=== PATIENT | male | born 1990 | race Caucasian/White ===

== ENCOUNTER 2018-02-07 10:57 | Emergency (ER) | payer BC, SELFPAY ==
[2018-02-07] MEDS ORDERED: NA CHLORIDE 0.9% 1,000 ML ONE (11:16)
[2018-02-07 11:32] LABS: Absolute Lymphocytes (CBC) 2.1 K/uL (0.7-4.9); Absolute Monocytes 0.4 K/uL (0.1-1.3); Absolute Neutrophil 4.2 K/uL (1.8-8.0); Eosinophils % 1.8 % (0-4.4); Hematocrit 47.7 % (39.6-49.0); Lymphocytes % 30.2 % (15.3-44.8); MCV 85.6 fL (80-100); Monocytes % 5.6 % (3.3-12.3); RBC Red Blood Cell Count 5.57 M/uL (4.33-5.43)
[2018-02-07 11:51] LABS: Albumin 4.4 g/dL (3.2-5.5); Bilirubin Total 0.7 mg/dL (0.3-1.2); Protein, Total 7.5 g/dL (6.0-8.3)
[2018-02-07 11:58] LABS: Potassium 4.4 mEq/L (3.6-5.0)
--- NOTE | 2018-02-07 12:58 | EDPHYS ---
Physician Documentation [facility] Name: Jared Bernardo Age: 27 yrs Sex: Male : 1990 Arrival Date: 02/07/2018 Time: 10:57 Bed 4 Private MD: ED Physician Jayant Son HPI: 02/07 11:13 This 27 yrs old Male presents to ER via EMS with complaints of weakness . jr8 11:13 Patient stated that while at work started to feel legs become weak and shaky. Stated jr8 that his boss wanted him to be checked out. EMS arrived on site and checked blood sugar since he had history of insulin resistence in past. Saw that BGL was in 70s. Gave some oral glucose. Patient currently on no diabetic medications. Vitamins only. Stated that he has been on and alkaline diet and has lost about 60 pounds thus far. Feeling better now but has cramping and pain in bilateral thighs. Denies any other problems . Severity of symptoms: At their worst the symptoms were moderate in the emergency department the symptoms have improved moderately. The patient has not experienced similar symptoms in the past. The patient has not recently seen a physician. Historical: - Allergies: 11:05 NKA; iw - Home Meds: 11:05 None [Active]; iw - PMHx: 11:05 None; iw - PSHx: 11:05 None; iw - Immunization history:: Adult Immunizations. - Social history:: Smoking status: . ROS: 11:13 Eyes: Negative for injury, pain, redness, and discharge, ENT: Negative for injury, jr8 pain, and discharge, Neck: Negative for injury, pain, and swelling, Cardiovascular: Negative for chest pain, palpitations, and edema, Respiratory: Negative for shortness of breath, cough, wheezing, and pleuritic chest pain, Abdomen/GI: Negative for abdominal pain, nausea, vomiting, diarrhea, and constipation, Back: Negative for injury and pain, MS/Extremity: Negative for injury and deformity, Skin: Negative for injury, rash, and discoloration. 11:13 Neuro: Positive for weakness, of the right leg and left leg, Negative for altered mental status, dizziness, gait disturbance, headache, hearing loss, loss of consciousness, numbness, seizure activity, speech changes, syncope, near syncope, tingling, tinnitus, tremor, visual changes. Exam: 11:13 Head/Face: Normocephalic, atraumatic. Eyes: Pupils equal round and reactive to light, jr8 extra-ocular motions intact. Lids and lashes normal. Conjunctiva and sclera are non-icteric and not injected. Cornea within normal limits. Periorbital areas with no swelling, redness, or edema. ENT: Nares patent. No nasal discharge, no septal abnormalities noted. Tympanic membranes are normal and external auditory canals are clear. Oropharynx with no redness, swelling, or masses, exudates, or evidence of obstruction, uvula midline. Mucous membranes moist. Neck: Trachea midline, no thyromegaly or masses palpated, and no cervical lymphadenopathy. Supple, full range of motion without nuchal rigidity, or vertebral point tenderness. No Meningismus. Cardiovascular: Regular rate and rhythm with a normal S1 and S2. No gallops, murmurs, or rubs. Normal PMI, no JVD. No pulse deficits. Respiratory: Lungs have equal breath sounds bilaterally, clear to auscultation and percussion. No rales, rhonchi or wheezes noted. No increased work of breathing, no retractions or nasal flaring. Abdomen/GI: Soft, non-tender, with normal bowel sounds. No distension or tympany. No guarding or rebound. No evidence of tenderness throughout. Back: No spinal tenderness. No costovertebral tenderness. Full range of motion. Skin: Warm, dry with normal turgor. Normal color with no rashes, no lesions, and no evidence of cellulitis. MS/ Extremity: Pulses equal, no cyanosis. Neurovascular intact. Full, normal range of motion. Neuro: Awake and alert, GCS 15, oriented to person, place, time, and situation. Cranial nerves II-XII grossly intact. Motor strength 5/5 in all extremities. Sensory grossly intact. Cerebellar exam normal. Normal gait. Vital Signs: 11:09 BP 149 / 78; Pulse 100; Resp 20; Temp 98.2; Pulse Ox 96% on R/A; Pain 0/10; iw 11:34 BP 139 / 92; Pulse 98; Resp 20; Pulse Ox 97% ; sv 12:40 BP 146 / 84; Pulse 96; Resp 17; Pulse Ox 98% ; sv MDM: 10:58 Patient medically screened. jr8 12:56 Data reviewed: vital signs, nurses notes, lab test result(s), and as a result, I will jr8 discharge patient. Data interpreted: Pulse oximetry: on room air is 98 %. Interpretation: normal. Counseling: I had a detailed discussion with the patient and/or guardian regarding: the historical points, exam findings, and any diagnostic results supporting the discharge/admit diagnosis, lab results, the need for outpatient follow up, a family practitioner, to return to the emergency department if symptoms worsen or persist or if there are any questions or concerns that arise at home. Response to treatment: the patient's symptoms have markedly improved after treatment, patient is well hydrated. ED course: Patient feeling much better. Wants to be released to go home . 02/07 11:05 Order name: CBC with Diff; Complete Time: 11:42 [facility] 02/07 11:05 Order name: CMP; Complete Time: 12:02 [facility] 02/07 11:05 Order name: CPK; Complete Time: 12:02 [facility] 02/07 11:29 Order name: Glucose, Ancillary Testing; Complete Time: 11:31 [facility] 02/07 11:30 Order name: Glucose, Ancillary Testing [facility] 02/07 11:05 Order name: IV; Complete Time: 11:18 [facility] 02/07 11:05 Order name: Urine Dipstick-Ancillary (obtain specimen); Complete Time: 11:07 [facility] 02/07 11:05 Order name: Glucose Level; Complete Time: 11:05 [facility] 02/07 11:05 Order name: Diet Regular; Complete Time: 11:06 [facility] Administered Medications: 11:27 Drug: NS 0.9% 1000 ml Route: IV; Rate: 1000 ml; Site: right antecubital; Point of Care Testing: Blood Glucose: 12:01 Blood Glucose: 87 mg/dL; mh5 Ranges: Critical Glucose Levels:Adult <50 mg/dl or >400 mg/dl <40 mg/dl or >180 mg/dl Disposition: 17:57 Co-signature as Attending Physician, Jayant Son MD. rn Disposition: 02/07/18 12:57 Discharged to Home. Impression: Dehydration. - Condition is Stable. - Discharge Instructions: Dehydration, Adult, Blood Glucose Monitoring, Adult. - Work release form, Medication Reconciliation Form, Thank You Letter, Antibiotic Education, Prescription Opioid Use form. - Follow up: Private Physician; When: 2 - 3 days; Reason: Recheck today's complaints, Continuance of care, Re-evaluation by your physician. - Problem is new. - Symptoms have improved. Signatures: Dispatcher [employer] EDlOeg Brown RN Daniela Smyth RN RN iw Nieto, Roman, MD MD rn Roszak, Josh, PA PA jr8
--- NOTE | 2018-02-07 12:58 | ER ---
Nurse's Notes [facility] Name: Jared Bernardo Age: 27 yrs Sex: Male : 1990 Arrival Date: 02/07/2018 Time: 10:57 Bed 4 Private MD: Diagnosis: Dehydration Presentation: 02/07 10:59 Presenting complaint: EMS states: pt got a little shaky/jittery while at walking down iw stairs, legs gave out, has recently changed his diet, did not eat breakfast this morning, FS=75 EMS gave oral glucose, up to 82. Transition of care: patient was not received from another setting of care. Onset of symptoms was February 07, 2018. Care prior to arrival: Medication(s) given: oral glucose 37.5 gm. 10:59 Method Of Arrival: EMS: [facility] iw 10:59 Acuity: AURELIO 3 iw Historical: - Allergies: 11:05 NKA; iw - Home Meds: 11:05 None [Active]; iw - PMHx: 11:05 None; iw - PSHx: 11:05 None; iw - Immunization history:: Adult Immunizations. - Social history:: Smoking status: . Screenin:10 Abuse screen: Denies threats or abuse. Denies injuries from another. Nutritional iw screening: No deficits noted. Tuberculosis screening: No symptoms or risk factors identified. Fall Risk None identified. Assessment: 11:09 General: Appears in no apparent distress. Behavior is calm, cooperative. Pain: Denies iw pain. Neuro: Level of Consciousness is awake, alert, obeys commands, Oriented to person, place, time, situation. Cardiovascular: Patient's skin is warm and dry. Respiratory: Respiratory effort is even, unlabored. Derm: Skin is pink, warm \T\ dry. normal. Musculoskeletal: Range of motion: intact in all extremities. 12:30 Reassessment: Patient appears in no apparent distress at this time. Patient and/or iw family updated on plan of care and expected duration. Pain level reassessed. Patient is alert, oriented x 3, equal unlabored respirations, skin warm/dry/pink. Patient denies pain at this time. Patient states feeling better. Patient states symptoms have improved. Vital Signs: 11:09 BP 149 / 78; Pulse 100; Resp 20; Temp 98.2; Pulse Ox 96% on R/A; Pain 0/10; iw 11:34 BP 139 / 92; Pulse 98; Resp 20; Pulse Ox 97% ; sv 12:40 BP 146 / 84; Pulse 96; Resp 17; Pulse Ox 98% ; sv ED Course: 10:57 Patient arrived in ED. iw 10:58 Berto Zamora PA is PHCP. jr8 10:58 Jayant Son MD is Attending Physician. jr8 11:03 Triage completed. iw 11:05 Daniela Arcos, RN is Primary Nurse. iw 11:09 Arm band placed on. iw 11:51 EKG done, by laboratory development technician. reviewed by Berto CERRATO. at1 12:00 Patient has correct armband on for positive identification. Placed in gown. Call light 5 in reach. Side rails up X2. 12:00 Initial lab(s) drawn, by me, sent to lab. Inserted saline lock: 20 gauge in right 5 antecubital area, using aseptic technique. Blood collected. 13:32 No provider procedures requiring assistance completed. IV discontinued, intact, iw bleeding controlled, No redness/swelling at site. Pressure dressing applied. Administered Medications: 11:27 Drug: NS 0.9% 1000 ml Route: IV; Rate: 1000 ml; Site: right antecubital; Point of Care Testing: Blood Glucose: 12:01 Blood Glucose: 87 mg/dL; [facility] Ranges: Outcome: 12:57 Discharge ordered by . jr8 13:32 Discharged to home ambulatory. iw 13:32 Condition: good 13:32 Discharge instructions given to patient, family, Instructed on discharge instructions, follow up and referral plans. Demonstrated understanding of instructions, follow-up care, medications. 13:34 Patient left the ED. sg Signatures: Cheyanne Burton RN CHUN Oleg Parker RN RN Daniela Arcos RN RN Berto Zamora PA PA jrLeonie neville, contract paralegal EKG Tat1 Kiarra Doll [facility] Corrections: (The following items were deleted from the chart) 11:18 11:09 BP 149 / 78; Pulse 100bpm; Resp 20bpm; Pulse Ox 96% RA; iw iw
--- NOTE | 2018-02-08 08:02 | EKG ---
Test Date: 2018-02-07 Test Time: 11:43:06 [employer]: ANGIE MEASUREMENT RESULTS: Intervals: Rate: 93 NM: 176 QRSD: 108 QT: 350 QTc: 435 Cruger: P: 26 NM: 176 QRS: -11 T: 35 INTERPRETIVE STATEMENTS: Normal sinus rhythm Normal ECG Compared to ECG 03/24/2016 12:17:44 Intraventricular conduction delay no longer present Electronically Signed On 02-08-18 07:59:54 CDT by Herbert Brito
== END 2018-02-07 13:34 | disposition home or self-care (01) ==
LOC: ER 10:57
DX: E86.0 Dehydration (principal)
CPT/HCPCS: 36415; 80053; 82550; 82962; 85025; 93005; 99284; J7030